=== PATIENT | female | born 1980 | race African-American/Black ===

== ENCOUNTER 2017-06-23 06:30 | Emergency (ER) | payer MEDICAID ==
[~2017-06-23] VITALS: Ht 165.1 cm; Wt 69.9 kg
[~2017-06-23 06:30] MED LIST: CLINDAMYCIN HC300 MG ORAL; CORTISPORIN EAR10 ML RIGHT EAR; METHIMAZOLE10 MG PO; NAPROSYN500 M1 ORAL; UNOBMED
[2017-06-23 06:44] VITALS: BP 136/77
[2017-06-23] MEDS ORDERED: ANTI-ITCH28 G1 TP (06:44)
[2017-06-23] MEDS ORDERED: PERMETHRIN60 GM TOPIC (06:44)
[2017-06-23] MEDS ORDERED: VISTARIL10 MG ORAL (06:44)
[2017-06-23 06:46] VITALS: BP 136/77
--- NOTE | 2017-06-23 07:23 | Emergency Room Report ---
History of Present Illness General Chief Complaint: Skin Rash/Abscess Present Illness HPI This is a 36-year-old female who presented after increased skin rash. She gradual onset of symptoms. Patient reported having increased itchiness. She had prior history of hyperthyroidism. She reports taking methimazole. The patient had gradual onset of rash which was itchy in nature. The patient reports having gradually worsening symptoms. Allergies: Coded Allergies: ACETAMINOPHEN (Unverified Allergy, Unknown, 04/22/15) Patient History Past Medical History: see triage record Last Menstrual Period: unk Reviewed Nursing Documentation: PMH: Agreed, PSxH: Agreed Nursing Documentation-PMH Hx Hypertension: Yes Hx Neurological Problems: Yes - Arthritis Review of Systems All Other Systems: negative except mentioned in HPI Physical Exam Vital Signs Date Time Temp Pulse Resp B/P (MAP) Pulse Ox O2 Delivery O2 Flow Rate FiO2 06/23/17 06:33 98.2 95 16 136/77 96 Room Air General Appearance: well appearing, no apparent distress, alert, GCS 15 Head: normocephalic, atraumatic ENT: hearing grossly normal, normal voice Neck: full range of motion, supple Respiratory: no respiratory distress, speaking full sentences Gastrointestinal: normal inspection Musculoskeletal: normal inspection, back normal, digits/nails normal, no calf tenderness Neurologic: normal inspection, alert, oriented x3, normal gait Psychiatric: mood/affect normal Skin: other - generalized papular rash Medical Decision Making Diagnostic Impression: Primary Impression: Skin rash ER Course Patient presented for skin rash. Differential diagnosis included was not limited to Lopez-Oniel syndrome, scabies, urticaria, erythema multiforme, contact dermatitis. Patient's benign exam and does not appear to require any further imaging or laboratory testing at this time. The patient presented a itchy papular rash. Patient was given prescription of permethrin and medications for itching. She is advised followup with her primary care physician in the next 2-3 days for recheck. Last Vital Signs Date Time Temp Pulse Resp B/P (MAP) Pulse Ox O2 Delivery O2 Flow Rate FiO2 06/23/17 06:46 98.8 16 136/77 96 Room Air 06/23/17 06:33 95 Status: improved Disposition: HOME, SELF-CARE Condition: Stable Scripts Hydroxyzine HCl (Hydroxyzine HCl) 10 Mg Tablet 10 MG ORAL EVERY 6 HOURS for Itching/Pruritis, #20 TAB 0 Refills Prov: Ciaran Joyce 06/23/17 Hydrocortisone 2% Cream (ANTI-ITCH 2% CREAM) Y Cr 28 GM TP DAILY for Itching, #28 GM Prov: Ciaran Joyce 06/23/17 Permethrin* (ELIMITE*) 60 Gm Cream..g. 1 APPLIC TOPIC ONCE, #60 GM 0 Refills Apply cream from head to toe; leave on for 8-14 hours before washing off with water; may reapply in 1 week if live mites appear. Prov: Ciaran Joyce 06/23/17 Referrals: [facility] [place],REFERRING (PCP) Patient Instructions: Ciaran Osborn Jun 23, 2017 07:23
== END 2017-06-23 06:55 | disposition home or self-care (01) ==
LOC: EMR 06:53
DX: R21 Rash and other nonspecific skin eruption (principal); I10 Essential (primary) hypertension; Z88.6 Allergy status to analgesic agent
CPT/HCPCS: 99283

== ENCOUNTER 2018-07-31 14:56 | Emergency (ER) | payer MEDICAID, OTHER ==
[~2018-07-31] VITALS: Ht 165.1 cm; Wt 74.8 kg
[~2018-07-31 14:56] MED LIST changes: +ANTI-ITCH28 G1 TP; +PERMETHRIN60 GM TOPIC; +VISTARIL10 MG ORAL
--- NOTE | 2018-07-31 16:05 | Emergency Room Report ---
History of Present Illness General Chief Complaint: Medication Refill Source: Patient Present Illness HPI 37-year-old female patient presents to ER requesting medication refill. States she has a history of hypothyroidism, states that she takes methimazole 10 mg daily. Reports she has not taken the medication for the past month due to "taking too long to see her doctor to get a refill" at the outpatient [facility] facility where she is seen.. States that she came to the ER to get a refill instead. Denies fever, chest pain or shortness of breath, abdominal pain , vomiting, diarrhea. States she has been on the medication for "years". Also complaining of rash on her bilateral feet. States is itchy. States is been present for the past few weeks. Reports has been treating [id number] with Tinactin however still present. also reports rash on hands and left breast , states rash is gone now however recurs periodically. States previously treated in [facility] however would like medication to treated prophylactically. Allergies: Coded Allergies: NAPROXEN (Verified Allergy, Severe, Hives, 07/31/18) Patient History Past Medical History: see triage record Last Menstrual Period: last month Now: No Reviewed Nursing Documentation: PMH: Agreed; PSxH: Agreed Nursing Documentation-PMH Past Medical History: No History, Except For Hx Hypertension: Yes Hx Neurological Problems: Yes - Arthritis Review of Systems All Other Systems: negative except mentioned in HPI Physical Exam Vital Signs Date Time Temp Pulse Resp B/P (MAP) Pulse Ox O2 Delivery O2 Flow Rate FiO2 07/31/18 15:03 99.0 95 16 143/83 97 Room Air Sp02 EP Interpretation: reviewed, normal General Appearance: well appearing, no apparent distress, alert, GCS 15, non- toxic Head: normocephalic, atraumatic Eyes: bilateral eye normal inspection, bilateral eye PERRL ENT: hearing grossly normal, normal pharynx, no angioedema, normal voice, uvula midline, moist mucus membranes Neck: full range of motion Respiratory: lungs clear, normal breath sounds, no rhonchi, no respiratory distress, no accessory muscle use, no wheezing, speaking full sentences Cardiovascular #1: regular rate, rhythm, no edema Gastrointestinal: non tender, soft, no mass, non-distended, no guarding, no rebound Genitourinary: no CVA tenderness Musculoskeletal: back normal, digits/nails normal, gait/station normal, normal range of motion, non-tender Neurologic: alert, oriented x3, responsive, motor strength/tone normal, sensory intact Psychiatric: mood/affect normal Skin: other - dry scaling skin on bilateral feet, no fissures, serrations noted , no erythema or edema, no red streaking Medical Decision Making PA Attestation Dr. Browne is my supervising Physician whom patient management has been discussed with. Diagnostic Impression: Primary Impression: Encounter for medication refill Additional Impression: Rash and other nonspecific skin eruption ER Course Pt. presents to the ED c/o rash and requesting refill medication. Ddx considered but are not limited to medication refill, hypothyroidism, eczema , dyspnea, scabies, prurigo, intertrigo, allergic reaction. Vital signs: are WNL, pt. is afebrile ER COURSE: patient declined to have labs drawn at this time to check for thyroid levels. Discuss patient with Dr. Browne, will not provide refill of medication at this time. Advised patient to follow-up with primary care doctor to get refill of medication. Needs close monitoring and treatment. Patient is symptomatically currently, no signs of thyroid storm at this time. ER precautions given. after initial examination, patient was not seen or found, believed to have eloped. Patient returned over an hour later stating that she was sitting at bed one with her who is currently being seen for different symptoms in ER. Physical exam shows likely tinea pedis bilaterally, no rash noted on hands or breasts, physical exam done with female crew leader/control room operator present. No erythema or edema, no fluctuance or induration, no signs of infection requiring antibiotic treatment. Provide patient with Claritin for itching symptoms and topical antifungal medication. Follow-up with dermatology. Do not scratch or itch. Provided with contact information for [employer]. ER precautions given. DISCHARGE: At this time pt is stable for d/c to home. Patient is resting comfortably, in no acute distress, nontoxic appearing, talking without difficulty. Patient to take medications as instructed Will provide with patient care instructions and any necessary prescriptions. Care plan and follow-up instructions provided. Patient instructed to follow-up with primary care provider in 3 - 5 days. Patient questions asked and answered. Patient reports understanding and agreement to treatment plan. ER precautions given. Patient instructed to return to ER immediately for any new or worsening of symptoms including but not limited to increasing SOB, persistent fever, chest pain, intractable vomiting. - Please note that this Emergency Department Report was dictated using [employer] operations manager technology software, occasionally this can lead to erroneous entry secondary to interpretation by the dictation equipment. Last Vital Signs Date Time Temp Pulse Resp B/P (MAP) Pulse Ox O2 Delivery O2 Flow Rate FiO2 07/31/18 15:03 99.0 95 16 143/83 97 Room Air Disposition: HOME, SELF-CARE Condition: Stable Scripts Diphenhydramine Hcl* (BENADRYL*) 25 Mg Capsule 25 MG ORAL Q6H PRN for Itching, #30 CAP Prov: Evert Madrigal 07/31/18 Loratadine (CLARITIN) 10 Mg Capsule 10 MG ORAL DAILY, #30 CAP Prov: Evert Madrigal 07/31/18 Clotrimazole* (LOTRIMIN*) 15 Gm Cream..g. 1 APPLIC TOPIC TWICE A DAY, #15 GM Prov: Evert Madrigal 07/31/18 Patient Instructions: Athlete's Foot, [id number], Medicine Refill at the Emergency Department Additional Instructions: Followup with primary care provider in 3 -5 days. Request referral to dermatology as needed. Discuss referral to endocrinology. Take medications as directed. Do not apply topical steroid medication to face or skin creases. SE Benadryl drowsiness, do not take prior to drinking, driving, operating heavy machinery. Take Claritin during the day and Benadryl at night for itching symptoms. Patient questions asked and answered. ER precautions given, patient instructed to return to ER immediately for any new or worsening of symptoms. [facility] [place] [facility] Evert Madrigal Jul 31, 2018 16:05
[2018-07-31 17:36] VITALS: BP 143/83
[2018-07-31] MEDS ORDERED: CLARITIN10 M2 ORAL (17:38)
[2018-07-31] MEDS ORDERED: BENADRYL25 MG ORAL (17:38)
[2018-07-31] MEDS ORDERED: CLOTRIMAZOLE15 GM TOPIC (17:38)
[2018-07-31 17:43] VITALS: BP 143/83
== END 2018-07-31 17:59 | disposition home or self-care (01) ==
LOC: EMR 15:57
DX: Z76.0 Encounter for issue of repeat prescription (principal); R21 Rash and other nonspecific skin eruption; I10 Essential (primary) hypertension; E03.9 Hypothyroidism, unspecified
CPT/HCPCS: 99282

== ENCOUNTER 2019-04-07 19:39 | Emergency (ER) | payer OTHER ==
[~2019-04-07] VITALS: Ht 165.1 cm; Wt 77.1 kg
[~2019-04-07 19:39] MED LIST changes: +BENADRYL25 MG ORAL; +CLARITIN10 M2 ORAL; +CLOTRIMAZOLE15 GM TOPIC
--- NOTE | 2019-04-07 19:45 | NUR ---
ED Nurse Note: CALLED FOR TRIAGE. NOT READY TO BE SEEN.
--- NOTE | 2019-04-07 20:11 | Emergency Room Report ---
History of Present Illness General Chief Complaint: To Be Triaged Present Illness HPI 38-year-old female with history of hyperthyroidism and schizophrenia currently on Seroquel and methimazole here complaining of 2 weeks of constipation. Patient stopped taking her methimazole a month ago as it was making her feel worse patient was recently seen by her primary care provider last week and had complete blood work and thyroid hormone level checked pending results. Patient reports that her primary care physician is changing the dosing of methimazole and is aware that she has not been taking it. Patient denies chest pain, palpitation, diaphoresis, fever and chills. Patient has normal vital signs. Reports that she has been having small pellets of bowel movement coming out without any blood. Patient has been passing gas however has not passed gas in the past 2 days. Patient does not appear to be distended no guarding when palpating the abdomen. Patient also reports that she believes she is being exposed to mold at home. Patient is not a good historian due to her psychiatric history. Denies urinary symptoms. Patient says that she is currently in her menstruation. Does not have a high fiber intake. Drinks alcohol and smokes tobacco. Allergies: Coded Allergies: NAPROXEN (Verified Allergy, Severe, Hives, 07/31/18) Patient History Past Medical History: see triage record Past Surgical History: unable to obtain Pertinent Family History: none Now: No Immunizations: UTD Reviewed Nursing Documentation: PMH: Agreed; PSxH: Agreed Nursing Documentation-PMH Hx Hypertension: Yes Hx Neurological Problems: Yes - Arthritis Review of Systems All Other Systems: negative except mentioned in HPI Physical Exam Sp02 EP Interpretation: reviewed, normal General Appearance: normal inspection, well appearing, no apparent distress, alert, GCS 15 Head: normocephalic, atraumatic Eyes: bilateral eye normal inspection, bilateral eye PERRL ENT: normal ENT inspection, hearing grossly normal, normal pharynx Neck: normal inspection, full range of motion, supple, thyroid normal Respiratory: normal inspection, lungs clear, no rhonchi, no wheezing Cardiovascular #1: normal inspection, normal peripheral pulses, no edema, no gallop, no murmur Gastrointestinal: normal inspection, normal bowel sounds, non tender, soft, no organomegaly, no peritonitis, no bruit, non-distended Rectal: deferred Genitourinary: no CVA tenderness Musculoskeletal: normal inspection, back normal, digits/nails normal Neurologic: normal inspection, alert, oriented x3 Psychiatric: judgement/insight normal, memory normal, no suicidal/homicidal ideation Skin: no rash, palpation normal Lymphatic: normal inspection, no adenopathy Medical Decision Making PA Attestation All my diagnosis and treatment plans were reviewed ad discussed with my supervising physician Dr. Lu Diagnostic Impression: Primary Impression: Constipation ER Course 38-year-old female with history of hyperthyroidism and schizophrenia currently on Seroquel and methimazole here complaining of 2 weeks of constipation. Patient stopped taking her methimazole a month ago as it was making her feel worse patient was recently seen by her primary care provider last week and had complete blood work and thyroid hormone level checked pending results. Patient reports that her primary care physician is changing the dosing of methimazole and is aware that she has not been taking it. Patient denies chest pain, palpitation, diaphoresis, fever and chills. Patient has normal vital signs. Reports that she has been having small pellets of bowel movement coming out without any blood. Patient has been passing gas however has not passed gas in the past 2 days. Patient does not appear to be distended no guarding when palpating the abdomen. Patient also reports that she believes she is being exposed to mold at home. Patient is not a good historian due to her psychiatric history. Denies urinary symptoms. Patient says that she is currently in her menstruation. Does not have a high fiber intake. Drinks alcohol and smokes tobacco. Ddx considered but are not limited to: Small bowel obstruction, constipation uncomplicated, hemorrhoids Vital signs: are WNL, pt. is afebrile H&PE are most consistent with: Uncomplicated constipation ORDERS: Colace ED INTERVENTIONS: None required at this time. DISCHARGE: At this time pt. is stable for d/c to home. Will provide printed patient care instructions, and any necessary prescriptions. Care plan and follow up instructions have been discussed with the patient prior to discharge. At this time no further work-up is needed as patient recently had blood work done by her primary care provider and due to normal vital sign no further assessment is needed patient to take Colace as needed for making easier bowel movements increase oral hydration fiber intake patient stable at time of discharge and to follow-up with primary care provider. Having high risk for colon cancer. Her symptoms are most likely secondary to stopping of methimazole abruptly. And also due to her low fiber intake. Disposition: HOME, SELF-CARE Condition: Stable Scripts Docusate Sodium* (COLACE*) 100 Mg Capsule 100 MG ORAL TWICE A DAY, #15 CAP Prov: Radu Webb 04/07/19 Patient Instructions: Constipation, Adult, [id number] Additional Instructions: Take medication as directed follow-up with your primary care provider continue taking your medication for hyperthyroidism at this time no further assessment is needed as you have normal vital signs and been able to make a small amount of bowel movement. If symptoms continue to be bothersome despite the medication follow-up with a primary care provider for further assessment increase your oral hydration as well as fiber intake avoid red meat and dairy products to reduce constipation. Radu Webb Apr 07, 2019 20:11
[2019-04-07 20:12] VITALS: BP 116/83
[2019-04-07] MEDS ORDERED: COLACE100 MG ORAL (20:12)
--- NOTE | 2019-04-07 20:21 | NUR ---
ED Nurse Note: Patient is cleared for discharge, patient verbalized understanding of discharge instructions. ID band removed, Patient escorted to discharge desk. Patient departed with all belongings.
[2019-04-07 20:23] VITALS: BP 116/83
== END 2019-04-07 20:24 | disposition home or self-care (01) ==
LOC: EMR 20:24
DX: K59.00 Constipation, unspecified (principal); F20.9 Schizophrenia, unspecified; M19.90 Unspecified osteoarthritis, unspecified site; I10 Essential (primary) hypertension; Z88.8 Allergy status to other drugs, medicaments and biological substances
CPT/HCPCS: 99282